=== PATIENT | male | born 1960 | race Caucasian/White ===

== ENCOUNTER 2018-09-11 23:43 | Inpatient (IN) | payer OTHER ==
[~2018-09-11] VITALS: Ht 177.8 cm; Wt 72.6 kg
[2018-09-12 00:12] LABS: BASO # 0.1 x10^3/uL (0.0-0.2); BASO % 1 % (0-3); EOS # 0.2 x10^3/uL (0.0-0.7); EOS % 3 % (0-3); HEMATOCRIT 50.6 % (39.0-53.0); HEMOGLOBIN 17.9 g/dL (13.0-17.5); LYMPH # 1.7 x10^3/uL (1.0-4.8); LYMPH % 24 % (24-48); MEAN CORPUSCULAR HEMOGLOBIN 29 pg (25-35); MEAN CORPUSCULAR HGB CONC 35 g/dL (31-37); MEAN CORPUSCULAR VOLUME 83 fL (79-100); MONO # 0.5 x10^3/uL (0.0-1.1); MONO % 7 % (0-9); NEUT # 4.7 x10^3uL (1.8-7.7); NEUT % 66 % (31-73); PLATELET COUNT 190 x10^3/uL (140-400); RED BLOOD COUNT 6.12 x10^6/uL (4.30-5.70); RED CELL DISTRIBUTION WIDTH 13.6 % (11.5-14.5); WHITE BLOOD COUNT 7.1 x10^3/uL (4.0-11.0)
[2018-09-12 00:21] LABS: PROTHROMBIN TIME PATIENT 13.1 SEC (11.7-14.0)
[2018-09-12 00:23] LABS: CALCIUM 9.6 mg/dL (8.5-10.1); CREATININE 1.1 mg/dL (0.7-1.3); GFR 68.5
[2018-09-12] MEDS ORDERED: ASPIRIN CHEWABLE 81 MG TABLET. PO ONE (00:55)
[2018-09-12] MEDS: NITROGLYCERIN SUBLINGUAL 0.4 MG BOTTLE OF 25. SL PRN ×3 (00:58→01:39)
[2018-09-12] MEDS ORDERED: MORPHINE SULFATE 4 MG/ML VIAL. IV ONE (01:30)
[2018-09-12] MEDS ORDERED: ONDANSETRON PF 4 MG/2 ML VIAL. IV PRN (02:00)
[2018-09-12] MEDS ORDERED: NITROGLYCERIN OINT 1 GM PACKET. TP ONE (02:00)
[2018-09-12] MEDS ORDERED: NITROGLYCERIN SUBLINGUAL 0.4 MG BOTTLE OF 25. SL PRN (02:00)
[2018-09-12] MEDS ORDERED: MORPHINE SULFATE 4 MG/ML VIAL. IV PRN (02:00)
[2018-09-12] MEDS ORDERED: ACETAMINOPHEN 325 MG TABLET. PO PRN (02:00)
--- NOTE | 2018-09-12 02:01 | PHYS DOC ---
Past Medical History Past Medical History: Cancer, Migraines, Other Additional Past Medical Histor: prostate cancer 1984,lung,liver mets 1994 w chemo,neuropathy Past Surgical History: Cancer Surgery Additional Past Surgical Histo: partial r lobectomy,r femur, turp, orchiectomy, carppel tunnel,r shoulder Alcohol Use: Rarely Drug Use: None Adult General Chief Complaint Chief Complaint: CHEST PAIN [facility] HPI Patient is a 58 year old male who presents with chest pain. The patient was at rest at approximately 10 PM when he had onset of left-sided chest pain that radiates to the left shoulder. He denies having similar symptoms in the past. No history of coronary artery disease. Pain is described to be a dull and heaviness. There are no aggravating or alleviating factors. The patient has not been ill lately with a cough, fever. He does have a history significant for diabetes and high blood pressure and hyperlipidemia. He does not know his family history as he was adopted. Review of Systems Review of Systems Constitutional: Denies fever Eyes: Denies HENT: Denies Respiratory: Denies cough Cardiovascular: No additional information not addressed in HPI GI: Denies abdominal pain Musculoskeletal: Denies back pain Integument: Denies rash or skin lesions Neurologic: Denies headache Endocrine: Denies All other systems were reviewed and found to be within normal limits, except as documented in this note. Current Medications Current Medications Current Medications Medications (Trade) Dose Ordered Sig/[facility] Start Time Stop Time Status Last Admin Dose Admin Aspirin (Children'S Aspirin) 324 mg 1X ONCE 09/12/18 00:55 09/12/18 00:56 DC 09/12/18 00:57 324 MG Nitroglycerin (Nitrostat) 0.4 mg PRN Q5MIN PRN 09/12/18 00:55 09/12/18 01:52 DC 09/12/18 01:39 0.4 MG Allergies Allergies Allergies Coded Allergies Type Severity Reaction Last Updated Verified No Known Drug Allergies 09/11/18 No Physical Exam Physical Exam Constitutional: Well developed, well nourished, no acute distress, non-toxic appearance HENT: Normocephalic, atraumatic, bilateral external ears normal Eyes: PERRLA, EOMI, conjunctiva normal, no discharge Neck: Normal range of motion, no tenderness Cardiovascular:Heart rate regular rhythm, no murmur Lungs & Thorax: Bilateral breath sounds clear to auscultation Abdomen: Bowel sounds normal, soft, no tenderness Skin: Warm, dry, no erythema, no rash Back: No tenderness Extremities: No edema Neurologic: Alert and oriented X 3 Psychologic: Affect normal Current Patient Data Vital Signs Vital Signs Date Time Temp Pulse Resp B/P (MAP) Pulse Ox O2 Delivery O2 Flow Rate FiO2 09/12/18 00:58 100 157/72 09/12/18 00:00 98.0 20 97 Room Air 98.0 Lab Values Laboratory Tests Test 09/12/18 00:05 White Blood Count 7.1 x10^3/uL (4.0-11.0) Red Blood Count 6.12 x10^6/uL (4.30-5.70) H Hemoglobin 17.9 g/dL (13.0-17.5) H Hematocrit 50.6 % (39.0-53.0) Mean Corpuscular Volume 83 fL (79-100) Mean Corpuscular Hemoglobin 29 pg (25-35) Mean Corpuscular Hemoglobin Concent 35 g/dL (31-37) Red Cell Distribution Width 13.6 % (11.5-14.5) Platelet Count 190 x10^3/uL (140-400) Neutrophils (%) (Auto) 66 % (31-73) Lymphocytes (%) (Auto) 24 % (24-48) Monocytes (%) (Auto) 7 % (0-9) Eosinophils (%) (Auto) 3 % (0-3) Basophils (%) (Auto) 1 % (0-3) Neutrophils # (Auto) 4.7 x10^3uL (1.8-7.7) Lymphocytes # (Auto) 1.7 x10^3/uL (1.0-4.8) Monocytes # (Auto) 0.5 x10^3/uL (0.0-1.1) Eosinophils # (Auto) 0.2 x10^3/uL (0.0-0.7) Basophils # (Auto) 0.1 x10^3/uL (0.0-0.2) Prothrombin Time 13.1 SEC (11.7-14.0) Prothrombin Time INR 1.0 (0.8-1.1) PTT 27 SEC (24-38) D-Dimer (Kylah) 0.29 ug/mlFEU (0.00-0.50) Sodium Level 143 mmol/L (136-145) Potassium Level 4.0 mmol/L (3.5-5.1) Chloride Level 103 mmol/L (98-107) Carbon Dioxide Level 28 mmol/L (21-32) Anion Gap 12 (6-14) Blood Urea Nitrogen 14 mg/dL (8-26) Creatinine 1.1 mg/dL (0.7-1.3) Estimated GFR (Cockcroft-Gault) 68.5 Glucose Level 250 mg/dL (70-99) H Calcium Level 9.6 mg/dL (8.5-10.1) Troponin I Quantitative < 0.017 ng/mL (0.000-0.055) YE-Rjd-L-Type Natriuretic Peptide 83 pg/mL (0-124) Laboratory Tests 09/12/18 00:05 Laboratory Tests 09/12/18 00:05 EKG EKG No STEMI Interpretation Time: 23:55 Radiology/Procedures Radiology/Procedures CXR: no acute findings Course & Med Decision Making Course & Med Decision Making Pertinent Labs and Imaging studies reviewed. (See chart for details) Patient was evaluated in the emergency department for chest pain with a somewhat concerning story. He does have significant risk factors although no prior coronary artery disease. In the emergency department, he was given 3 nitroglycerin which brought his pain to a 1/10. Following this, he was given a dose of morphine. He was also given aspirin. His EKG did not reveal STEMI but was not a normal EKG. His troponin was not elevated. His BNP was not elevated so he was given a small amount of fluid for mild tachycardia with a heart rate of 104. D-dimer was not elevated. 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 He is admitted for chest pain observation admission. Cardiology consult was placed. Bridge orders are placed. Patient was pain-free upon disposition from the emergency department. Dragon Disclaimer Dragon Disclaimer This electronic medical record was generated, in whole or in part, using a voice recognition dictation system. Departure Departure Referrals: NO PCP (PCP) TIM CLAROS DO Sep 12, 2018 02:01
[2018-09-12] MEDS ORDERED: IV NORMAL SALINE 1000ML BAG 1,000 ML IV ONE (02:15)
[2018-09-12 03:00] VITALS: BP 141/63
--- NOTE | 2018-09-12 05:29 | RAD ---
PORTABLE CHEST 1V Clinical History: CHEST PAIN Technique: AP view of the chest was obtained at 09/12/2018 12:26 AM. Comparison: None. Findings: The cardiomediastinal silhouette is normal. The pulmonary vasculature is normal. The lungs and pleural margins are clear. There is suture lines in the right lung base. Impression: No evidence of an acute cardiopulmonary process. Electronically signed by: Dontae Mcgill III, MD (09/12/2018 5:26 AM) [facility]
[2018-09-12 06:32] LABS: CHOLESTEROL/HDL RATIO 5.6
[2018-09-12 07:00] VITALS: BP 121/70
--- NOTE | 2018-09-12 07:36 | EKG ---
[facility] [address] [place] [address] Test Date: 2018-09-11 Test Time: 23:50:17 Pat Name: ALLISON CHOWDHURY Department: Room: 210 1 Gender: M Housing Assistant: : 1960 Requested By: TIM CLAROS Order Number: [id number] Reading MD: Everette Gold Measurements Intervals [place] Rate: 104 P: 50 WI: 152 QRS: -97 QRSD: 120 T: 36 QT: 338 QTc: 451 Interpretive Statements SINUS TACHYCARDIA LEFT ATRIAL ABNORMALITY ABNORMAL RIGHT SUPERIOR AXIS DEVIATION R-S TRANSITION ZONE IN V LEADS DISPLACED TO THE LEFT LEFT ANTERIOR FASCICULAR BLOCK INCOMPLETE RIGHT BUNDLE BRANCH BLOCK RVH WITH REPOLARIZATION ABNORMALITY QRS(T) CONTOUR ABNORMALITY CONSIDER ANTEROSEPTAL MYOCARDIAL DAMAGE ABNORMAL ECG RI6.01 No previous ECG available for comparison Electronically Signed On 09-16-2018 12:40:54 AUTO PHONE INSTALLER by Everette Gold
--- NOTE | 2018-09-12 09:01 | EKG ---
[facility] [address] [place] [address] Test Date: 2018-09-12 Test Time: 07:29:15 Pat Name: ALLISON CHOWDHURY Department: Room: 210 1 Gender: M [place]: KRISTINE : 1960 Requested By: TIM CLAROS Order Number: [id number] Reading MD: David Adams MD Measurements Intervals [place] Rate: 73 P: 38 MO: 164 QRS: -83 QRSD: 126 T: 1 QT: 416 QTc: 462 Interpretive Statements SINUS RHYTHM ABNORMAL LEFT AXIS DEVIATION LEFT ANTERIOR FASCICULAR BLOCK RIGHT BUNDLE BRANCH BLOCK BIFASCICULAR BLOCK Electronically Signed On 09-12-2018 12:53:14 CDT by David Adams MD
--- NOTE | 2018-09-12 09:09 | PDOC2 ---
NGUYEN BRUNNER RETAIL WAREHOUSE ASSOCIATE 09/12/18 0909: CARDIAC CONSULT DATE OF CONSULT Date of Consult DATE: 09/12/18 TIME: 09:05 REASON FOR CONSULT Reason for Consult: Chest pain REFERRING PHYSICIAN Referring Physician: Dr. Cavazos SOURCE Source: Chart review, Patient HISTORY OF PRESENT ILLNESS HISTORY OF PRESENT ILLNESS This is a 58 yo male who presented with complaints of chest pain. Began around 10pm while he was laying in bed watching television. Located in his left chest and radiated up to his left should and down his left arm. Describes as dullness/ numbness. Associated with PEREZ and mild dizziness. No SOA, palpitations, diaphoresis, or nausea/vomiting. Took BP at home; was 202/106. Denies any PAGE, orthopnea, PND, or LE edema. Pain resolved with nitro and morphine in ED and has not returned. Was previously on antiHTN therapy. Quit his job this past March and lost insurance coverage. Ran out of medications at that time and was not able to get them refilled. Began new job recently and now has insurance coverage. No previous h/o CAD or prior cardiac workup. PAST MEDICAL HISTORY Cardiovascular: HTN, Hyperlipidemia Pulmonary: Other (lung CA) CENTRAL NERVOUS SYSTEM: Periperal neuropathy GI: Diverticulosis Heme/Onc: Cancer (lung, testicular) Hepatobiliary: No pertinent hx Psych: No pertinent hx Musculoskeletal: Osteoarthritis Rheumatologic: No pertinent hx Infectious disease: No pertinent hx ENT: No pertinent hx Renal/: No pertinent hx Endocrine: Diabetes Dermatology: No pertinent hx PAST SURGICAL HISTORY Past Surgical History: Hernia Repair, Other (RLL lobectomy, right rotator cuff , right carpal tunnel surgery, femur surgery- jaret right leg, abdominal surgery seconday to adhesions) FAMILY HISTORY Family History: Adopted SOCIAL HISTORY ALCOHOL: none Drugs: None Lives: with Family CURRENT MEDICATIONS CURRENT MEDICATIONS Current Medications Medications (Trade) Dose Ordered Sig/Umesh Route PRN Reason Start Time Stop Time Status Last Admin Dose Admin Aspirin (Children'S Aspirin) 324 mg 1X ONCE PO 09/12/18 00:55 09/12/18 00:56 DC 09/12/18 00:57 Nitroglycerin (Nitrostat) 0.4 mg PRN Q5MIN PRN SL CHEST PAIN 09/12/18 00:55 09/12/18 01:52 DC 09/12/18 01:39 Morphine Sulfate (Morphine Sulfate) 4 mg 1X ONCE IV 09/12/18 01:30 09/12/18 01:31 DC 09/12/18 01:40 Nitroglycerin (Nitro-Bid Oint) 0.5 inch 1X ONCE TP 09/12/18 02:00 09/12/18 02:01 DC 09/12/18 01:53 ALLERGIES ALLERGIES: Coded Allergies: No Known Drug Allergies (Unverified , 09/11/18) ROS Review of System 14 point ROS conducted with pertinent positives noted above in HPI. PHYSICAL EXAM General: Alert, Oriented X3, Cooperative, No acute distress HEENT: Atraumatic, Mucous membr. moist/pink Lungs: Clear to auscultation, Normal air movement Heart: Regular rate, Normal S1, Normal S2, No murmurs Abdomen: Soft, No tenderness Extremities: No edema, Normal pulses Skin: No breakdown, No significant lesion Neuro: Normal speech, Sensation intact Psych/Mental Status: Mental status NL, Mood NL MUSCULOSKELETAL: No deformity VITALS VITALS Vital Signs Date Time Temp Pulse Resp B/P (MAP) Pulse Ox O2 Delivery O2 Flow Rate FiO2 09/12/18 07:30 Room Air 09/12/18 07:00 98.9 72 18 121/70 (87) 97 98.9 LABS Lab: Laboratory Tests Test 09/12/18 00:05 09/12/18 06:00 09/12/18 08:06 White Blood Count 7.1 x10^3/uL (4.0-11.0) Red Blood Count 6.12 x10^6/uL (4.30-5.70) Hemoglobin 17.9 g/dL (13.0-17.5) Hematocrit 50.6 % (39.0-53.0) Mean Corpuscular Volume 83 fL (79-100) Mean Corpuscular Hemoglobin 29 pg (25-35) Mean Corpuscular Hemoglobin Concent 35 g/dL (31-37) Red Cell Distribution Width 13.6 % (11.5-14.5) Platelet Count 190 x10^3/uL (140-400) Neutrophils (%) (Auto) 66 % (31-73) Lymphocytes (%) (Auto) 24 % (24-48) Monocytes (%) (Auto) 7 % (0-9) Eosinophils (%) (Auto) 3 % (0-3) Basophils (%) (Auto) 1 % (0-3) Neutrophils # (Auto) 4.7 x10^3uL (1.8-7.7) Lymphocytes # (Auto) 1.7 x10^3/uL (1.0-4.8) Monocytes # (Auto) 0.5 x10^3/uL (0.0-1.1) Eosinophils # (Auto) 0.2 x10^3/uL (0.0-0.7) Basophils # (Auto) 0.1 x10^3/uL (0.0-0.2) Prothrombin Time 13.1 SEC (11.7-14.0) Prothromb Time International Ratio 1.0 (0.8-1.1) Activated Partial Thromboplast Time 27 SEC (24-38) D-Dimer (Kylah) 0.29 ug/mlFEU (0.00-0.50) Sodium Level 143 mmol/L (136-145) Potassium Level 4.0 mmol/L (3.5-5.1) Chloride Level 103 mmol/L (98-107) Carbon Dioxide Level 28 mmol/L (21-32) Anion Gap 12 (6-14) Blood Urea Nitrogen 14 mg/dL (8-26) Creatinine 1.1 mg/dL (0.7-1.3) Estimated GFR (Cockcroft-Gault) 68.5 Glucose Level 250 mg/dL (70-99) Calcium Level 9.6 mg/dL (8.5-10.1) Troponin I Quantitative < 0.017 ng/mL (0.000-0.055) 0.019 ng/mL (0.000-0.055) OW-Mdy-H-Type Natriuretic Peptide 83 pg/mL (0-124) Triglycerides Level 98 mg/dL (0-150) Cholesterol Level 192 mg/dL (0-200) LDL Cholesterol, Calculated 138 mg/dL (0-100) VLDL Cholesterol, Calculated 20 mg/dL (0-40) Non-HDL Cholesterol Calculated 158 mg/dL (0-129) HDL Cholesterol 34 mg/dL (40-60) Cholesterol/HDL Ratio 5.6 Glucose (Fingerstick) 167 mg/dL (70-99) ASSESSMENT/PLAN ASSESSMENT/PLAN 1. Chest pain, atypical and most probably related to #2. Trop negative x2- AMI ruled out. EKG with diffuse ST/T changes 2. Accelerated hypertension; now better controlled 3. Dyslipidemia 4. Diabetes, II 5. Non-compliance; off all meds since March. 6. H/o testicular/lung CA; s/p chemo and RLL lobectomy Recommendations Add ASA, statin Add ACEi for BP control Check echo to assess LV systolic function Given risk factors and abnormal EKG, will further risk stratify with MPI to r/o ischemia. ERNA BETTENCOURT MD 09/12/18 9272: CARDIAC CONSULT ASSESSMENT/PLAN ASSESSMENT/PLAN Pt. seen and examined. Agree with above Rail Car Driver note. 58 y.o male with atypical symptoms. Negative MP OK for discharge. NGUYEN BRUNNER APRN Sep 12, 2018 09:09 ERNA BETTENCOURT MD Sep 12, 2018 23:05
[2018-09-12] MEDS ORDERED: LISINOPRIL 20 MG TABLET PO SCH (09:30)
[2018-09-12] MEDS ORDERED: REGADENOSON 0.4 MG/5 ML DISP.SYRIN. IV ONE (10:00)
[2018-09-12] MEDS ORDERED: ASPIRIN ENTERIC COATED 81 MG TABLET.DR. PO SCH (10:00)
[2018-09-12 11:00] VITALS: BP 129/71
--- NOTE | 2018-09-12 13:08 | EKG ---
[facility] [address] [place] [address] Test Date: 2018-09-12 Test Time: 13:01:59 Pat Name: ALLISON CHOWDHURY Department: Room: 210 1 Gender: M Implementation Project Coordinator: FREDIS : 1960 Requested By: TIM CLAROS Order Number: [id number] Reading MD: Everette Gold Measurements Intervals [place] Rate: 77 P: 37 ID: 150 QRS: -95 QRSD: 126 T: 10 QT: 406 QTc: 461 Interpretive Statements SINUS RHYTHM ABNORMAL RIGHT SUPERIOR AXIS DEVIATION LEFT ANTERIOR FASCICULAR BLOCK RIGHT BUNDLE BRANCH BLOCK BIFASCICULAR BLOCK QRS(T) CONTOUR ABNORMALITY CONSIDER INFERIOR MYOCARDIAL DAMAGE ABNORMAL ECG RI6.01 Electronically Signed On 09-16-2018 12:54:32 ADJUNCT PROFESSOR OF VOICE by Everette Gold
--- NOTE | 2018-09-12 13:10 | CARD ---
MR#: [id number] Date of Study: 09/12/2018 Ordering Physician: NGUYEN BRUNNER, Referring Physician: FANTASMA PATTON Tech: Elise Mckee RDCS APPROVED REPORT EXAM: Two-dimensional and M-mode echocardiogram with Doppler and color Doppler. Other Information Quality : Good INDICATION Dyspnea 2D DIMENSIONS RVDd2.2 (2.9-3.5cm)Left Atrium(2D)3.2 (1.6-4.0cm) IVSd1.3 (0.7-1.1cm)Aortic Root(2D)2.8 (2.0-3.7cm) LVDd4.7 (3.9-5.9cm)LVOT Diameter2.0 (1.8-2.4cm) PWd1.2 (0.7-1.1cm)LVDs2.0 (2.5-4.0cm) FS (%) 30.0 %SV88.1 ml LVEF(%)60.0 (>50%) Aortic Valve AoV Peak Sixto.163.0cm/sAoV VTI26.4cm AO Peak GR.10.6mmHgLVOT Peak Sixto.112.7cm/s LVOT VTI 22.00cmAO Mean GR.7mmHg CHER (VMAX)2.56vy4SMY (VTI)2.60cm2 Mitral Valve MV E Eypepnoh04.8cm/sMV DECEL DGXG096cc MV A Vkrehyml470.2cm/sMV KUR60es E/A Ratio1.0MVA (PHT)2.95cm2 TDI E/Lateral E'12.4E/Medial E'16.2 Tricuspid Valve TR P. Ouimexog491sx/sRAP TFVIRRRZ6bwUc TR Peak Gr.09vuFgEBMQ00ghNy Pulmonary Vein S1 Qrbtqnnm83.0cm/sD2 Yzcezrix54.6cm/s LEFT VENTRICLE The left ventricle is normal size. There is mild concentric left ventricular hypertrophy. The left ve ntricular systolic function is normal and the ejection fraction is within normal range. The Ejection Fraction is 60-65%. There is normal LV segmental wall motion. Transmitral Doppler flow pattern is Gra de I-abnormal relaxation pattern. RIGHT VENTRICLE The right ventricle is normal size. The right ventricular systolic function is normal. ATRIA The left atrium size is normal. The right atrium size is normal. The interatrial septum is intact wit h no evidence for an atrial septal defect or patent foramen ovale as noted on 2-D or Doppler imaging. AORTIC VALVE The aortic valve is calcified but opens well. Doppler and Color Flow revealed no significant aortic r egurgitation. There is no significant aortic valvular stenosis. MITRAL VALVE The mitral valve is calcified but opens well. There is no evidence of mitral valve prolapse. There is no mitral valve stenosis. Doppler and Color-flow revealed trace mitral regurgitation. TRICUSPID VALVE The tricuspid valve is normal in structure and function. Doppler and Color Flow revealed trace tricus pid regurgitation. The PA pressure was estimated at 33 mmHg. There is no tricuspid valve stenosis. PULMONIC VALVE The pulmonary valve is normal in structure and function. Doppler and Color Flow revealed no pulmonic valvular regurgitation. There is no pulmonic valvular stenosis. GREAT VESSELS The aortic root is normal in size. The ascending aorta is normal in size. The IVC is normal in size a nd collapses >50% with inspiration. PERICARDIAL EFFUSION There is no evidence of significant pericardial effusion. Critical Notification Critical Value: No <Conclusion> The left ventricle is normal size. The left ventricular systolic function is normal and the ejection fraction is within normal range. The Ejection Fraction is 60-65%. There is mild concentric left ventricular hypertrophy. There is no significant aortic valvular stenosis. Doppler and Color Flow revealed no significant aortic regurgitation. Doppler and Color-flow revealed trace mitral regurgitation. Doppler and Color Flow revealed trace tricuspid regurgitation. The PA pressure was estimated at 33 mmHg. Signed by : Everette Gold MD Electronically Approved : 09/12/2018 13:09:49
--- NOTE | 2018-09-12 14:35 | RAD ---
MR#: [id number] Date of Study: 09/12/2018 Ordering Physician: NGUYEN BRUNNER, Referring Physician: JANETTE NICOLE Tech: RT Kaushki Hernandez) (N) APPROVED REPORT Test Type: Pharmacological Stress Nurse/Tech: Eva Harrison R.N. Test Indications: c/p Cardiac History: htn, high cholesterol,DM Medications: See Electronic Medical Record Medical History: See Electronic Medical Record Resting Heart Rate: 72 bpm Resting Blood Pressure: 72mmHg Pretest Chest Pain: No chest pain Nurse/Tech Notes S1S2, lungs CTA Consent: The procedure was explained to the patient in lay terms. Informed consent was witnessed. Naveed eout was entered into [employer]. History and Stress Test performed by RT Jeni HernandezR) (N) Pharm. Details Pharmacologic stress testing was performed using 0.4mg per 5ml of regadenoson given intravenously ove r 7-10 seconds. Stress Symptoms SOB POST EXERCISE Reason for Termination: Infusion complete Max HR: 102 bpm Max Blood Pressure: 148/67mmHg Blood Pressure response to exercise: Normal blood pressure response during stress. Heart Rate response to exercise: wnl Chest Pain: No. Arrhythmia: No. ST Change: No. no changes from slightly abnormal baseline INTERPRETATION Stress EKG Conclusion: Baseline EKG showed sinus rhythm with RBBB. No ischemic changes at peak stres s. No arrhythmias. Imaging Protocol IMAGE PROTOCOL: Rest Tc-99m/stress Tc-99m 1 day Rest: Stress: Viability: Radiopharm.Tc99m VvxestwjbOu98b Sestamibi Iouz59jPw 34mCi Duration 15min. 10min. Img Date 09/12/2018 09/12/2018 Inj-Img Mput51ypt. 60min. Rest Admin Site:IV - Right AntecubitalAdministrator:LONI Concepcion, ARRT (R)(N) Stress Admin Site: IV - Right AntecubitalAdministrator: LONI Concepcion, ARRT (R)(N) STRESS DATA End Diast. Vol.66.0mlAv. Heart Rate88.0bpm End Syst. Vol.9.0mlCO Index BSA5.0L/min Myocardial Csbu570.0gEject. Xtfeylkn32.0% Stress Rates Pk. Fill Rate4.97EDV/secLVtime Pk. Fill 187.05msec Pk. Empty Rate6.41ESV/secLVtime Pk. Kufgx913.00msec 1/3 Pk. Fill1.21EDV/sec Stress Scores Regional WT0.00Summed WT3.00 Regional WM0.00Summed WM0.00 Study quality was good. Left Ventricular size was Normal at Rest and Stress. Lung uptake was . Left Ventricular ejection fraction is 86%. The rest and stress images show normal perfusion, normal contraction and thickening. LV Perf. Quant 17 Seg. SSS3.00 17 Seg. SRS3.00 17 Seg. SDS1.00 Stress Defect Extent (% LAD)0.00Rest Defect Extent (% LAD)0.00Rev. Defect Extent (% LAD)0.00 Stress Defect Extent (% LCX) 20.00Rest Defect Extent (% LCX)27.50Rev. Defect Extent (% LCX)0.00 Stress Defect Extent (% RCA)0.00Rest Defect Extent (% RCA)0.00Rev. Defect Extent (% RCA)0.00 Stress Defect Extent (% ALYSSA)3.50Rest Defect Extent (% ALYSSA)4.80Rev. Defect Extent (% ALYSSA)0.00 Conclusion 1. Regadenoson cardioisotope stress test did not show any evidence of ischemia or infarct. 2. Normal left ventricular systolic function with ejection fraction calculated at 86%. 3. Low risk for cardiac events. Signed by : Vlad Lopez, Electronically Approved : 09/12/2018 14:34:15
[2018-09-12 15:00] VITALS: BP 146/65
[2018-09-12] MEDS ORDERED: LISI-334 PO (16:12)
[2018-09-12] MEDS ORDERED: ATOR20TA58 PO (16:12)
[2018-09-12] MEDS ORDERED: ASPI81TA50 PO (16:13)
[2018-09-12] MEDS ORDERED: METF500T16 PO (16:13)
[2018-09-12] MEDS ORDERED: ATORVASTATIN CALCIUM 20 MG TABLET PO SCH (21:00)
== END 2018-09-12 17:45 | disposition home or self-care (01) | DRG 313 ==
LOC: ER 23:43 → 2 NORTH 09-12 01:00
PROVIDERS: ADMIT Internal Medicine; ATTEND Internal Medicine
DX: R07.89 Other chest pain (principal); E78.5 Hyperlipidemia, unspecified; I10 Essential (primary) hypertension; E11.42 Type 2 diabetes mellitus with diabetic polyneuropathy; G43.909 Migraine, unspecified, not intractable, without status migrainosus; M19.90 Unspecified osteoarthritis, unspecified site; K57.90 Diverticulosis of intestine, part unspecified, without perforation or abscess without bleeding; Z85.118 Personal history of other malignant neoplasm of bronchus and lung; Z85.46 Personal history of malignant neoplasm of prostate; Z91.19 Patient's noncompliance with other medical treatment and regimen; Z92.21 Personal history of antineoplastic chemotherapy; Z79.4 Long term (current) use of insulin; Z79.899 Other long term (current) drug therapy
CPT/HCPCS: 36415; 71045; 78452; 80048; 80061; 82962; 83880; 84484; 85025; 85379; 85610; 85730; 93005; 93017; 93306; 96374; 96375; 96376; A9500; J2270; J2785; 99285-25